=== PATIENT | female | born 1965 | race Caucasian/White ===

== ENCOUNTER 2019-05-17 15:01 | Observation (INO) | payer BC ==
[2019-05-17] MEDS ORDERED: Aspirin 81 MG Tab.Chew PO ONE (15:08)
[2019-05-17] MEDS ORDERED: Sodium Chloride 0.9% 2.5 ML Syringe FLUSH PRN (15:08)
[2019-05-17] MEDS ORDERED: Sodium Chloride 0.9% 10 ML Syringe FLUSH PRN (15:08)
--- NOTE | 2019-05-17 15:20 | EDM.PDOC ---
ED HPI GENERAL MEDICAL PROBLEM - General Chief Complaint: Chest Pain Stated Complaint: CHEST DISCOMFORT Time Seen by Provider: 05/17/19 15:09 Source of Information: Reports: Patient History Limitations: Reports: No Limitations - History of Present Illness INITIAL COMMENTS - FREE TEXT/NARRATIVE: HISTORY AND PHYSICAL: History of present illness: Patient is a 53-year-old female who presents to the emergency room with complaints of generalized chest pain since 10 AM this morning. She states earlier this year she had a stent placed due to some coronary artery disease while she was in [place]. She states that she has not had any problems since her stent placement. This morning she had generalized chest pain that she describes as a tight, nagging feeling which she "was hoping would go away". Nothing makes the pain better or worse. Patient denies any fever, chills, headache, change in vision, syncope or near syncope. Denies any back pain, shortness of breath or cough. Denies any GI or symptoms. Patient has been eating and drinking appropriately. Review of systems: As per history of present illness and below otherwise all systems reviewed and negative. Past medical history: As per history of present illness and as reviewed below otherwise noncontributory. Surgical history: As per history of present illness and as reviewed below otherwise noncontributory. Social history: See social history for further information Family history: As per history of present illness and as reviewed below otherwise noncontributory. Physical exam: General: Well-developed and well-nourished 53-year-old female. Alert and oriented. Nontoxic-appearing and in no acute distress. HEENT: Atraumatic, normocephalic, pupils equal and reactive bilaterally, negative for conjunctival pallor or scleral icterus, mucous membranes moist, neck supple, nontender, trachea midline. No drooling or trismus noted. No meningeal signs. No hot potato voice noted. Lungs: Clear to auscultation, breath sounds equal bilaterally, mild tenderness to palpation of the left anterior chest. Heart: S1S2, regular rate and rhythm without overt murmur Abdomen: Soft, nondistended, nontender. Negative for masses or hepatosplenomegaly. Negative for costovertebral tenderness. Pelvis: Stable nontender. Skin: Intact, warm, dry. No lesions or rashes noted. Extremities: Atraumatic, moves all extremities per self without difficulty or deficits, negative for cords or calf pain. Neurovascular unremarkable. Neuro: Awake, alert, oriented. Cranial nerves II through XII unremarkable. Cerebellum unremarkable. Motor and sensory unremarkable throughout. Exam nonfocal. Notes: EKG shows normal sinus rhythm with a rate of 72. Currently rates pain 5/10 - will give Nitro subling x 3 as able. Patient pain free after 2 nitro. VSS. Labs unremarkable. Offered admission for further observation. Patient is agreeable. Dr Sweeney was consulted and agreeable. Diagnostics: CBC, CMP, Troponin, EKG, CXR Therapeutics: Saline Lock, ASA, Nitro Impression: Chest pain r/o HI Plan: Observation admission to Med/Surg with telemetry Definitive disposition and diagnosis as appropriate pending reevaluation and review of above. chest pain Pain Score (Numeric/FACES): 5 - Related Data Allergies Allergy/AdvReac Type Severity Reaction Status Date / Time No Known Allergies Allergy Verified 05/17/19 15:09 Home Meds: Home Meds Aspirin [Adult Low Dose Aspirin EC] 81 mg PO DAILY 05/17/19 [History] Calcium Carbonate/Vitamin D3 [Calcium 600 + Vit D 200] 1 tab PO BID 05/17/19 [ History] Cholecalciferol (Vitamin D3) [D3-2000] 25 mcg PO DAILY 05/17/19 [History] Clopidogrel Bisulfate [Plavix] 75 mg PO DAILY 05/17/19 [History] Metoprolol Tartrate [Lopressor] 25 mg PO BID 05/17/19 [History] Multivit-Min/Folic Acid/Vit K1 [Multi For Her 50 Plus Softgel] 1 tab PO DAILY [History] [place]-3/DHA/Epa/Fish Oil [Fish Oil 500 MG Softgel] 1 tab PO DAILY 05/17/19 [ History] amLODIPine Besylate [Amlodipine Besylate] 10 mg PO DAILY 05/17/19 [History] atorvaSTATin [Lipitor] 40 mg PO BEDTIME 05/17/19 [History] ED ROS GENERAL - Review of Systems Review Of Systems: Comprehensive ROS is negative, except as noted in HPI. ED EXAM, GENERAL - Physical Exam Exam: See Below (See dictation) Course - Vital Signs Last Recorded V/S: Last Vital Signs Temp 96.8 F 05/17/19 15:07 Pulse 84 05/17/19 15:35 Resp 18 05/17/19 15:35 BP 130/86 05/17/19 15:35 Pulse Ox 94 L 05/17/19 15:35 - Orders/Labs/Meds Orders: Active Orders 24 hr Category Date Time Status Admission Status [Patient Status] [ADT] Stat ADT 05/17/19 16:03 Active EKG Documentation Completion [RC] STAT Care 05/17/19 15:08 Active GLYCOSYLATED HEMOGLOBIN,HGBA1C [CHEM] Stat Lab 05/17/19 16:19 Ordered Nitroglycerin [Nitrostat] Med 05/17/19 15:08 Active 0.4 mg SL Q5M PRN Sodium Chloride 0.9% [Saline Flush] Med 05/17/19 15:08 Active 10 ml FLUSH ASDIRECTED PRN Sodium Chloride 0.9% [Saline Flush] Med 05/17/19 15:08 Active 2.5 ml FLUSH ASDIRECTED PRN Saline Lock Insert [OM.PC] Stat Oth 05/17/19 15:08 Ordered Medication Orders Nitroglycerin (Nitrostat) 0.4 mg SL Q5M PRN PRN Reason: Chest Pain Last Admin: 05/17/19 15:30 Dose: 0.4 mg Admin: 05/17/19 15:24 Dose: 0.4 mg Sodium Chloride (Saline Flush) 10 ml FLUSH ASDIRECTED PRN PRN Reason: Keep Vein Open Last Admin: 05/17/19 15:25 Dose: 10 ml Sodium Chloride (Saline Flush) 2.5 ml FLUSH ASDIRECTED PRN PRN Reason: Keep Vein Open Last Admin: 05/17/19 15:26 Dose: 2.5 ml Labs: Laboratory Tests 05/17/19 05/17/19 Range/Units 15:20 15:20 WBC 6.82 (4.0-11.0) K/uL RBC 4.40 (4.30-5.90) M/uL Hgb 13.9 (12.0-16.0) g/dL Hct 39.3 (36.0-46.0) % MCV 89.3 (80.0-98.0) fL MCH 31.6 (27.0-32.0) pg MCHC 35.4 (31.0-37.0) g/dL RDW Std Deviation 41.9 (28.0-62.0) fl RDW Coeff of Jennifer 13 (11.0-15.0) % Plt Count 256 (150-400) K/uL MPV 9.60 (7.40-12.00) fL Neut % (Auto) 57.6 (48.0-80.0) % Lymph % (Auto) 33.6 (16.0-40.0) % [place] % (Auto) 6.0 (0.0-15.0) % Eos % (Auto) 2.2 (0.0-7.0) % Baso % (Auto) 0.6 (0.0-1.5) % Neut # (Auto) 3.9 (1.4-5.7) K/uL Lymph # (Auto) 2.3 (0.6-2.4) K/uL [place] # (Auto) 0.4 (0.0-0.8) K/uL Eos # (Auto) 0.2 (0.0-0.7) K/uL Baso # (Auto) 0.0 (0.0-0.1) K/uL Nucleated RBC % 0.0 /100WBC Nucleated RBCs # 0 K/uL Sodium 141 (136-145) mmol/L Potassium 3.7 (3.5-5.1) mmol/L Chloride 104 (98-107) mmol/L Carbon Dioxide 27.6 (21.0-32.0) mmol/L BUN 15 (7.0-18.0) mg/dL Creatinine 0.9 (0.6-1.0) mg/dL Est Cr Clr Drug Dosing 70.30 mL/min Estimated GFR (MDRD) > 60.0 ml/min Glucose 116 H (74-106) mg/dL Calcium 9.1 (8.5-10.1) mg/dL Total Bilirubin 0.3 (0.2-1.0) mg/dL AST 21 (15-37) IU/L ALT 46 (14-63) IU/L Alkaline Phosphatase 114 (46-116) U/L Troponin I < 0.050 (0.000-0.056) ng/mL Total Protein 7.7 (6.4-8.2) g/dL Albumin 4.2 (3.4-5.0) g/dL Globulin 3.5 (2.6-4.0) g/dL Albumin/Globulin Ratio 1.2 (0.9-1.6) Meds: Medications Generic Name Dose Route Start Last Admin Trade Name Freq PRN Reason Stop Dose Admin Nitroglycerin 0.4 mg 05/17/19 15:08 05/17/19 15:30 Nitrostat SL 0.4 mg Q5M PRN Administration Chest Pain Sodium Chloride 10 ml 05/17/19 15:08 05/17/19 15:25 Saline Flush FLUSH 10 ml ASDIRECTED PRN Administration Keep Vein Open Sodium Chloride 2.5 ml 05/17/19 15:08 05/17/19 15:26 Saline Flush FLUSH 2.5 ml ASDIRECTED PRN Administration Keep Vein Open Discontinued Medications Generic Name Dose Route Start Last Admin Trade Name Freq PRN Reason Stop Dose Admin Aspirin 324 mg 05/17/19 15:08 05/17/19 15:25 Aspirin PO 05/17/19 15:09 324 mg ONETIME ONE Administration Departure - Departure Time of Disposition: 16:30 Disposition: Refer to Observation Clinical Impression: Chest pain, rule out acute myocardial infarction Sepsis Event Note - Focused Exam Vital Signs: Vital Signs Temp Pulse Resp BP BP Pulse Ox 05/17/19 15:35 84 18 130/86 94 L 05/17/19 15:30 142/92 H 05/17/19 15:24 156/90 H 05/17/19 15:07 96.8 F 72 16 169/91 H 98 Date Exam was Performed: 05/17/19 Time Exam was Performed: 16:29 - My Orders Last 24 Hours: My Active Orders 05/17/19 15:08 EKG Documentation Completion [RC] STAT Nitroglycerin [Nitrostat] 0.4 mg SL Q5M PRN Sodium Chloride 0.9% [Saline Flush] 10 ml FLUSH ASDIRECTED PRN Sodium Chloride 0.9% [Saline Flush] 2.5 ml FLUSH ASDIRECTED PRN Saline Lock Insert [OM.PC] Stat 05/17/19 16:03 Admission Status [Patient Status] [ADT] Stat - Assessment/Plan Last 24 Hours: My Active Orders 05/17/19 15:08 EKG Documentation Completion [RC] STAT Nitroglycerin [Nitrostat] 0.4 mg SL Q5M PRN Sodium Chloride 0.9% [Saline Flush] 10 ml FLUSH ASDIRECTED PRN Sodium Chloride 0.9% [Saline Flush] 2.5 ml FLUSH ASDIRECTED PRN Saline Lock Insert [OM.PC] Stat 05/17/19 16:03 Admission Status [Patient Status] [ADT] Stat
[2019-05-17] MEDS: Nitroglycerin 0.4 MG Tab.SL SL PRN ×2 (15:24→15:30)
--- NOTE | 2019-05-17 15:52 | CR ---
Chest: AP view of the chest was obtained. Comparison: No prior chest imaging. Heart size and mediastinum are normal. Lungs are clear. Bony structures are grossly intact. Impression: 1. Nothing acute is seen on AP chest x-ray. Diagnostic code #1 This report was dictated in [place] Standard Time
[2019-05-17 16:01] LABS: BLOOD UREA NITROGEN,BUN 15 mg/dL (7.0-18.0); CARBON DIOXIDE,CO2 27.6 mmol/L (21.0-32.0); CHLORIDE,CL 104 mmol/L (98-107); GLUCOSE RANDOM 116 mg/dL (74-106); POTASSIUM,K 3.7 mmol/L (3.5-5.1); SODIUM,NA 141 mmol/L (136-145)
--- NOTE | 2019-05-17 16:47 | PCM.HP.2 ---
H&P History of Present Illness - General Date of Service: 05/17/19 Admit Problem/Dx: Admission Diagnosis/Problem Admission Diagnosis/Problem Chest pain, rule out acute myocardial infarction Source of Information: Patient History Limitations: Reports: No Limitations - History of Present Illness Initial Comments - Free Text/Narative: This 53 year old female with pmh of HTN, dyslipidemia, and recent stenting of LAD presented to the ED with complaints of L shoulder sharp shooting pain that was followed by heaviness that concerned her. She reports she had a stent place approximately 8 months ago in [place]. She reports she never had chest pain, had some shortness of breath with activity and was set up with a stress test and failed that within 6 minutes per her report. She was taken back the following day and was noted to have 99% stenosis of the LAD. She has remained on her Plavix and ASA since. She reports the pain today started when she was at rest at her desk. She had 2 cups of coffee prior. Reported this sharp shooting pain to her L upper chest and shoulder, which then settled into a heaviness. She then just didn't feel right and went home. At home she had some soup and continued not to feel well. She was concerned and decided to come to the ED to be evaluated. He reports family history of CAD, father had multiple MIs with 2 open heart surgeries, with first GA at the age of 43 approximately. She reports being compliant with all medications. She denies alcohol, tobacco or recreational drug use. In the ED labwork WNL. Troponin negative. EKG SR with no ST changes or T wave inversions. pain improved with Nitro x 2 to 0. BP slightly elevated on arrival, 160 SBP. She reports she had taken BP the other day and it was 120/80s. She was also given ASA. She will be admitted for chest pain rule out ACS PCP, no one in area currently, Needs to establish care. chest pain Pain Score (Numeric/FACES): 5 - Related Data Allergies/Adverse Reactions: Allergies Allergy/AdvReac Type Severity Reaction Status Date / Time shellfish derived Allergy Facial Verified 05/17/19 17:21 Swelling Home Medications: Home Meds Aspirin [Adult Low Dose Aspirin EC] 81 mg PO DAILY 05/17/19 [History] Calcium Carbonate/Vitamin D3 [Calcium 600 + Vit D 200] 1 tab PO BID 05/17/19 [ History] Cholecalciferol (Vitamin D3) [D3-2000] 25 mcg PO DAILY 05/17/19 [History] Clopidogrel Bisulfate [Plavix] 75 mg PO DAILY 05/17/19 [History] Metoprolol Tartrate [Lopressor] 25 mg PO BID 05/17/19 [History] Multivit-Min/Folic Acid/Vit K1 [Multi For Her 50 Plus Softgel] 1 tab PO DAILY [History] [place]-3/DHA/Epa/Fish Oil [Fish Oil 500 MG Softgel] 1 tab PO DAILY 05/17/19 [ History] amLODIPine Besylate [Amlodipine Besylate] 10 mg PO DAILY 05/17/19 [History] atorvaSTATin [Lipitor] 40 mg PO BEDTIME 05/17/19 [History] Past Medical History - Past Health History Medical/Surgical History: Denies Medical/Surgical History Cardiovascular History: Reports: CAD, High Cholesterol, Hypertension, Stents. 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 Denies: Diabetes, Type II, Hypothyroidism, Obesity/BMI 30+ - Past Surgical History HEENT Surgical History: Reports: Tonsillectomy Cardiovascular Surgical History: Reports: Coronary Artery Stent GI Surgical History: Reports: Other (See Below) Other GI Surgeries/Procedures: Laparoscopy Female Surgical History: Reports: Hysterectomy, Salpingo-Oophorectomy Social & Family History - Family History Family Medical History: Noncontributory - Tobacco Use Smoking Status *Q: Never Smoker - Caffeine Use Caffeine Use: Reports: Coffee - Alcohol Use Alcohol Use History: No - Recreational Drug Use Recreational Drug Use: No H&P Review of Systems - Review of Systems: Review Of Systems: See Below General: Reports: Malaise HEENT: Reports: No Symptoms, Visual Changes. Denies: Ear Pain, Sinus Congestion Pulmonary: Reports: No Symptoms. Denies: Shortness of Breath Cardiovascular: Reports: Chest Pain (now resolved.), Blood Pressure Problem. Denies: Palpitations, Orthopnea, Syncope Gastrointestinal: Reports: No Symptoms. Denies: Abdominal Pain Genitourinary: Reports: No Symptoms Musculoskeletal: Reports: No Symptoms Skin: Reports: No Symptoms Psychiatric: Reports: No Symptoms Hematologic/Lymphatic: Reports: No Symptoms Immunologic: Reports: No Symptoms Exam - Exam Exam: See Below - Vital Signs Vital Signs: Last Vital Signs Temp 96.8 F 05/17/19 15:07 Pulse 84 05/17/19 15:35 Resp 18 05/17/19 15:35 BP 130/86 05/17/19 15:35 Pulse Ox 94 L 05/17/19 15:35 Weight: 86.183 kg - Exam General: Alert, Oriented, Cooperative Lungs: Clear to Auscultation, Normal Respiratory Effort Cardiovascular: Regular Rate, Regular Rhythm, Normal S1, Normal S2. No: Systolic Murmur GI/Abdominal Exam: Normal Bowel Sounds, Soft, Non-Tender Extremities: Normal Inspection, Normal Range of Motion, Non-Tender, No Pedal Edema Neuro Extensive - Mental Status: Alert, Oriented x3 Neuro Extensive - Motor, Sensory, Reflexes: CN II-XII Intact Psychiatric: Alert, Normal Affect, Normal Mood - Patient Data Lab Results Last 24 hrs: Laboratory Results - last 24 hr 05/17/19 05/17/19 Range/Units 15:20 15:20 WBC 6.82 (4.0-11.0) K/uL RBC 4.40 (4.30-5.90) M/uL Hgb 13.9 (12.0-16.0) g/dL Hct 39.3 (36.0-46.0) % MCV 89.3 (80.0-98.0) fL MCH 31.6 (27.0-32.0) pg MCHC 35.4 (31.0-37.0) g/dL RDW Std Deviation 41.9 (28.0-62.0) fl RDW Coeff of Jennifer 13 (11.0-15.0) % Plt Count 256 (150-400) K/uL MPV 9.60 (7.40-12.00) fL Neut % (Auto) 57.6 (48.0-80.0) % Lymph % (Auto) 33.6 (16.0-40.0) % [place] % (Auto) 6.0 (0.0-15.0) % Eos % (Auto) 2.2 (0.0-7.0) % Baso % (Auto) 0.6 (0.0-1.5) % Neut # (Auto) 3.9 (1.4-5.7) K/uL Lymph # (Auto) 2.3 (0.6-2.4) K/uL [place] # (Auto) 0.4 (0.0-0.8) K/uL Eos # (Auto) 0.2 (0.0-0.7) K/uL Baso # (Auto) 0.0 (0.0-0.1) K/uL Nucleated RBC % 0.0 /100WBC Nucleated RBCs # 0 K/uL Sodium 141 (136-145) mmol/L Potassium 3.7 (3.5-5.1) mmol/L Chloride 104 (98-107) mmol/L Carbon Dioxide 27.6 (21.0-32.0) mmol/L BUN 15 (7.0-18.0) mg/dL Creatinine 0.9 (0.6-1.0) mg/dL Est Cr Clr Drug Dosing 70.30 mL/min Estimated GFR (MDRD) > 60.0 ml/min Glucose 116 H (74-106) mg/dL Calcium 9.1 (8.5-10.1) mg/dL Total Bilirubin 0.3 (0.2-1.0) mg/dL AST 21 (15-37) IU/L ALT 46 (14-63) IU/L Alkaline Phosphatase 114 (46-116) U/L Troponin I < 0.050 (0.000-0.056) ng/mL Total Protein 7.7 (6.4-8.2) g/dL Albumin 4.2 (3.4-5.0) g/dL Globulin 3.5 (2.6-4.0) g/dL Albumin/Globulin Ratio 1.2 (0.9-1.6) Result Diagrams: 05/17/19 15:20 05/17/19 15:20 EKG INTERPRETATION EKG Date: 05/17/19 Rhythm: NSR P-Wave: Present QRS: Normal ST-T: Normal QT: Normal Sepsis Event Note - Evaluation Sepsis Screening Result: No Definite Risk - Focused Exam Vital Signs: Vital Signs Temp Pulse Resp BP BP Pulse Ox 05/17/19 15:35 84 18 130/86 94 L 05/17/19 15:30 142/92 H 05/17/19 15:24 156/90 H 05/17/19 15:07 96.8 F 72 16 169/91 H 98 Date Exam was Performed: 05/17/19 Time Exam was Performed: 19:57 - Problem List (1) Chest pain, rule out acute myocardial infarction SNOMED Code(s): 65603396 ICD Code: R07.9 - CHEST PAIN, UNSPECIFIED Status: Acute Current Visit: No (2) HTN (hypertension) SNOMED Code(s): 59103805 ICD Code: I10 - ESSENTIAL (PRIMARY) HYPERTENSION Status: Chronic Current Visit: Yes (3) Dyslipidemia SNOMED Code(s): 157735830 ICD Code: E78.5 - HYPERLIPIDEMIA, UNSPECIFIED Status: Chronic Current Visit: Yes (4) CAD (coronary artery disease) SNOMED Code(s): 33525383 ICD Code: I25.10 - ATHSCL HEART DISEASE OF [place] CORONARY ARTERY W/O ANG PCTRS Status: Chronic Current Visit: Yes Qualifiers: Coronary Disease-Associated Artery/Lesion type: [place] artery [place] vs. transplanted heart: [place] heart (5) History of placement of stent in LAD coronary artery SNOMED Code(s): 095714364 ICD Code: Z95.5 - PRESENCE OF CORONARY ANGIOPLASTY IMPLANT AND GRAFT Status : Chronic Current Visit: Yes Problem List Initiated/Reviewed/Updated: Yes Orders Last 24hrs: Active Orders 24 hr Category Date Time Status Admission Status [Patient Status] [ADT] Stat ADT 05/17/19 16:03 Active EKG Documentation Completion [RC] STAT Care 05/17/19 15:08 Active GLYCOSYLATED HEMOGLOBIN,HGBA1C [CHEM] Stat Lab 05/17/19 15:20 Received Nitroglycerin [Nitrostat] Med 05/17/19 15:08 Active 0.4 mg SL Q5M PRN Sodium Chloride 0.9% [Saline Flush] Med 05/17/19 15:08 Active 10 ml FLUSH ASDIRECTED PRN Sodium Chloride 0.9% [Saline Flush] Med 05/17/19 15:08 Active 2.5 ml FLUSH ASDIRECTED PRN Saline Lock Insert [OM.PC] Stat Oth 05/17/19 15:08 Ordered Medication Orders Nitroglycerin (Nitrostat) 0.4 mg SL Q5M PRN PRN Reason: Chest Pain Last Admin: 05/17/19 15:30 Dose: 0.4 mg Admin: 05/17/19 15:24 Dose: 0.4 mg Sodium Chloride (Saline Flush) 10 ml FLUSH ASDIRECTED PRN PRN Reason: Keep Vein Open Last Admin: 05/17/19 15:25 Dose: 10 ml Sodium Chloride (Saline Flush) 2.5 ml FLUSH ASDIRECTED PRN PRN Reason: Keep Vein Open Last Admin: 05/17/19 15:26 Dose: 2.5 ml Assessment/Plan Comment:: This 53 year old female admitted with chest pain, rule out ACS 1. Chest pain: Trend troponins every 3 hours, monitor on telemetry Will trial GI cocktail and Protonix. Monitor for return of chest pain. monitor lipid panel and A1c. Arrange outpatient stress test and appointment with [facility] now that she is living here. 2. CAD: Continue ASA, Plavix and statin 3. HTN: Continue Metoprolol and Amlodipine. VTE Prophylaxis: SCDs and ambulation - Mortality Measure Prognosis:: Good
[2019-05-17] MEDS ORDERED: Ondansetron 4 MG/2 ML SDV IVPUSH PRN (16:51)
[2019-05-17] MEDS ORDERED: Acetaminophen 325 MG Tab PO PRN (16:51)
[2019-05-17] MEDS ORDERED: Pantoprazole 40 MG in Sodium Chloride 0.9% 10 ML IV ONE (16:51)
[2019-05-17] MEDS ORDERED: Alum Hydrox/Mag Hydrox/Simeth 15 ML, Lidocaine 2% 5 ML PO ONE ×2 (16:51)
[2019-05-17] MEDS ORDERED: Morphine 2 MG/ML Syringe IVPUSH PRN (16:55)
[2019-05-17] MEDS ORDERED: Nitroglycerin 0.4 MG Tab.SL SL PRN (16:55)
[2019-05-17 17:02] LABS: HEMOGLOBIN A1C 5.2 % (4.5-6.2)
[2019-05-17] MEDS: Calcium Carbonate/Vitamin D3 1500 MG-400 Units Tab PO SCH (20:08)
[2019-05-17] MEDS: Metoprolol Tartrate 25 MG Tab PO SCH (20:09)
[2019-05-17] MEDS ORDERED: atorvaSTATin 40 MG Tab PO SCH (21:00)
[2019-05-18] MEDS ORDERED: VIT K1 PO SCH (09:00)
[2019-05-18] MEDS ORDERED: EPA PO SCH (09:00)
[2019-05-18] MEDS ORDERED: MULTIVIT MIN PO SCH (09:00)
[2019-05-18] MEDS ORDERED: FOLIC ACID PO SCH (09:00)
[2019-05-18] MEDS ORDERED: OMEGA PO SCH (09:00)
[2019-05-18] MEDS ORDERED: Clopidogrel 75 MG Tab PO SCH (09:00)
[2019-05-18] MEDS ORDERED: Cholecalciferol (Vitamin D3) 25 MCG Tab PO SCH (09:00)
[2019-05-18] MEDS ORDERED: FISH OIL PO SCH (09:00)
[2019-05-18] MEDS ORDERED: amLODIPine 5 MG Tab PO SCH (09:00)
[2019-05-18] MEDS ORDERED: Aspirin 81 MG Tab.EC PO SCH (09:00)
[2019-05-18] MEDS ORDERED: DHA PO SCH (09:00)
[2019-05-18] MEDS: Calcium Carbonate/Vitamin D3 1500 MG-400 Units Tab PO SCH (09:03)
[2019-05-18] MEDS: Metoprolol Tartrate 25 MG Tab PO SCH (09:03)
--- NOTE | 2019-05-18 10:03 | PCM.DCSUM1 ---
Discharge Summary - Hospital Course Brief History: This 53 year old female with pmh of HTN, dyslipidemia, and recent stenting of LAD presented to the ED with complaints of L shoulder sharp shooting pain that was followed by heaviness that concerned her. She reports she had a stent place approximately 8 months ago in [place]. She reports she never had chest pain, had some shortness of breath with activity and was set up with a stress test and failed that within 6 minutes per her report. She was taken back the following day and was noted to have 99% stenosis of the LAD. She has remained on her Plavix and ASA since. She reports the pain today started when she was at rest at her desk. She had 2 cups of coffee prior. Reported this sharp shooting pain to her L upper chest and shoulder, which then settled into a heaviness. She then just didn't feel right and went home. At home she had some soup and continued not to feel well. She was concerned and decided to come to the ED to be evaluated. He reports family history of CAD, father had multiple MIs with 2 open heart surgeries, with first AR at the age of 43 approximately. She reports being compliant with all medications. She denies alcohol, tobacco or recreational drug use. In the ED labwork WNL. Troponin negative. EKG SR with no ST changes or T wave inversions. pain improved with Nitro x 2 to 0. BP slightly elevated on arrival, 160 SBP. She reports she had taken BP the other day and it was 120/80s. She was also given ASA. She will be admitted for chest pain rule out ACS Diagnosis: Stroke: No - Discharge Data Discharge Date: 05/18/19 Discharge Disposition: Home, Self-Care 01 Condition: Good - Referral to Home Health Primary Care Physician: PCP None - Discharge Diagnosis/Problem(s) (1) Chest pain, rule out acute myocardial infarction SNOMED Code(s): 26074220 ICD Code: R07.9 - CHEST PAIN, UNSPECIFIED Status: Acute (2) HTN (hypertension) SNOMED Code(s): 55844421 ICD Code: I10 - ESSENTIAL (PRIMARY) HYPERTENSION Status: Chronic (3) Dyslipidemia SNOMED Code(s): 432481489 ICD Code: E78.5 - HYPERLIPIDEMIA, UNSPECIFIED Status: Chronic (4) CAD (coronary artery disease) SNOMED Code(s): 55953955 ICD Code: I25.10 - ATHSCL HEART DISEASE OF [place] CORONARY ARTERY W/O ANG PCTRS Status: Chronic Qualifiers: Coronary Disease-Associated Artery/Lesion type: [place] artery [place] vs. transplanted heart: [place] heart (5) History of placement of stent in LAD coronary artery SNOMED Code(s): 074498365 ICD Code: Z95.5 - PRESENCE OF CORONARY ANGIOPLASTY IMPLANT AND GRAFT Status : Chronic - Patient Instructions Diet: Heart Healthy Diet Activity: As Tolerated, No Strenuous Activities Showering/Bathing: May Shower Notify Provider of: Fever, Increased Pain, Swelling and Redness, Drainage, Nausea and/or Vomiting - Discharge Plan *PRESCRIPTION DRUG MONITORING PROGRAM REVIEWED*: Not Applicable *COPY OF PRESCRIPTION DRUG MONITORING REPORT IN PATIENT ASHLEIGH: Not Applicable Prescriptions/Med Rec: Pantoprazole Sodium [Protonix] 20 mg PO DAILY #30 tablet. Home Medications: Home Meds Aspirin [Adult Low Dose Aspirin EC] 81 mg PO DAILY 05/17/19 [History] Calcium Carbonate/Vitamin D3 [Calcium 600 + Vit D 200] 1 tab PO BID 05/17/19 [ History] Cholecalciferol (Vitamin D3) [D3-2000] 25 mcg PO DAILY 05/17/19 [History] Clopidogrel Bisulfate [Plavix] 75 mg PO DAILY 05/17/19 [History] Metoprolol Tartrate [Lopressor] 25 mg PO BID 05/17/19 [History] Multivit-Min/Folic Acid/Vit K1 [Multi For Her 50 Plus Softgel] 1 tab PO DAILY [History] [place]-3/DHA/Epa/Fish Oil [Fish Oil 500 MG Softgel] 1 tab PO DAILY 05/17/19 [ History] amLODIPine Besylate [Amlodipine Besylate] 10 mg PO DAILY 05/17/19 [History] atorvaSTATin [Lipitor] 40 mg PO BEDTIME 05/17/19 [History] Pantoprazole Sodium [Protonix] 20 mg PO DAILY #30 tablet. 05/18/19 [Rx] Oxygen Therapy Mode: Room Air Patient Handouts: Nonspecific Chest Pain, [id number], Pantoprazole tablets Referrals: [facility] [Outside] Sandhya Hercules MD [Physician] - 06/16/19 10:30 am Carolyn Jarrett NP [Nurse Practitioner] - 05/26/19 9:45 am - Discharge Summary/Plan Comment DC Time >30 min.: No Discharge Summary/Plan Comment: Admitting Diagnoses: Chest pain Discharge Diagnoses: Chest pain-resolved Other PMH: Hx CAD with recent stenting to LAD HTN Bibiana was admitted and monitored overnight for ACS rule out due to chest pressure she experienced at rest at work. Nitro x 2 helped with pain. She was also given GI cocktail and Protonix. EKG SR with no ST elevation or T wave inversion. She had no re-occurence of chest pain. alarm security or surveillance monitor unchanged overnight. Troponins negative. She will be discharged today with close follow up with PCP, Cardiology and outpatient stress test. She is to continue all current medications, I will add Protonix x2 weeks in case GERD caused pain. But overall, ACS ruled out further evaluation needed due to significant CAD history. She is to return to ED or clinic if concerns should arise or chest pain returns. - Patient Data Vitals - Most Recent: Last Vital Signs Temp 96.9 F 05/18/19 07:38 Pulse 65 05/18/19 07:38 Resp 16 05/18/19 07:38 BP 119/71 05/18/19 07:38 Pulse Ox 96 05/18/19 07:38 Weight - Most Recent: 86.183 kg I&O - Last 24 hours: Intake & Output 05/17/19 05/18/19 05/18/19 22:59 06:59 14:59 Intake Total 950 Output Total 700 Balance 250 Lab Results - Last 24 hrs: Laboratory Results - last 24 hr 05/17/19 05/17/19 05/17/19 Range/Units 15:20 15:20 15:20 WBC 6.82 (4.0-11.0) K/uL RBC 4.40 (4.30-5.90) M/uL Hgb 13.9 (12.0-16.0) g/dL Hct 39.3 (36.0-46.0) % MCV 89.3 (80.0-98.0) fL MCH 31.6 (27.0-32.0) pg MCHC 35.4 (31.0-37.0) g/dL RDW Std Deviation 41.9 (28.0-62.0) fl RDW Coeff of Jennifer 13 (11.0-15.0) % Plt Count 256 (150-400) K/uL MPV 9.60 (7.40-12.00) fL Neut % (Auto) 57.6 (48.0-80.0) % Lymph % (Auto) 33.6 (16.0-40.0) % [place] % (Auto) 6.0 (0.0-15.0) % Eos % (Auto) 2.2 (0.0-7.0) % Baso % (Auto) 0.6 (0.0-1.5) % Neut # (Auto) 3.9 (1.4-5.7) K/uL Lymph # (Auto) 2.3 (0.6-2.4) K/uL [place] # (Auto) 0.4 (0.0-0.8) K/uL Eos # (Auto) 0.2 (0.0-0.7) K/uL Baso # (Auto) 0.0 (0.0-0.1) K/uL Nucleated RBC % 0.0 /100WBC Nucleated RBCs # 0 K/uL Sodium 141 (136-145) mmol/L Potassium 3.7 (3.5-5.1) mmol/L Chloride 104 (98-107) mmol/L Carbon Dioxide 27.6 (21.0-32.0) mmol/L BUN 15 (7.0-18.0) mg/dL Creatinine 0.9 (0.6-1.0) mg/dL Est Cr Clr Drug Dosing 70.30 mL/min Estimated GFR (MDRD) > 60.0 ml/min Glucose 116 H (74-106) mg/dL Hemoglobin A1c 5.2 (4.5-6.2) % Calcium 9.1 (8.5-10.1) mg/dL Total Bilirubin 0.3 (0.2-1.0) mg/dL AST 21 (15-37) IU/L ALT 46 (14-63) IU/L Alkaline Phosphatase 114 (46-116) U/L Troponin I < 0.050 (0.000-0.056) ng/mL Total Protein 7.7 (6.4-8.2) g/dL Albumin 4.2 (3.4-5.0) g/dL Globulin 3.5 (2.6-4.0) g/dL Albumin/Globulin Ratio 1.2 (0.9-1.6) Triglycerides (0-200) mg/dL Cholesterol (50-200) mg/dL LDL Cholesterol, Calc (60-180) mg/dL VLDL Cholesterol (5-55) mg/dL HDL Cholesterol (40-60) mg/dL Cholesterol/HDL Ratio (3.3-6.0) TSH 3rd Generation (0.36-3.74) uIU/mL 05/17/19 05/17/19 05/18/19 Range/Units 18:06 21:05 05:18 WBC (4.0-11.0) K/uL RBC (4.30-5.90) M/uL Hgb (12.0-16.0) g/dL Hct (36.0-46.0) % MCV (80.0-98.0) fL MCH (27.0-32.0) pg MCHC (31.0-37.0) g/dL RDW Std Deviation (28.0-62.0) fl RDW Coeff of Jennifer (11.0-15.0) % Plt Count (150-400) K/uL MPV (7.40-12.00) fL Neut % (Auto) (48.0-80.0) % Lymph % (Auto) (16.0-40.0) % [place] % (Auto) (0.0-15.0) % Eos % (Auto) (0.0-7.0) % Baso % (Auto) (0.0-1.5) % Neut # (Auto) (1.4-5.7) K/uL Lymph # (Auto) (0.6-2.4) K/uL [place] # (Auto) (0.0-0.8) K/uL Eos # (Auto) (0.0-0.7) K/uL Baso # (Auto) (0.0-0.1) K/uL Nucleated RBC % /100WBC Nucleated RBCs # K/uL Sodium (136-145) mmol/L Potassium (3.5-5.1) mmol/L Chloride (98-107) mmol/L Carbon Dioxide (21.0-32.0) mmol/L BUN (7.0-18.0) mg/dL Creatinine (0.6-1.0) mg/dL Est Cr Clr Drug Dosing mL/min Estimated GFR (MDRD) ml/min Glucose (74-106) mg/dL Hemoglobin A1c (4.5-6.2) % Calcium (8.5-10.1) mg/dL Total Bilirubin (0.2-1.0) mg/dL AST (15-37) IU/L ALT (14-63) IU/L Alkaline Phosphatase (46-116) U/L Troponin I < 0.050 < 0.050 (0.000-0.056) ng/mL Total Protein (6.4-8.2) g/dL Albumin (3.4-5.0) g/dL Globulin (2.6-4.0) g/dL Albumin/Globulin Ratio (0.9-1.6) Triglycerides 205 H (0-200) mg/dL Cholesterol 158 (50-200) mg/dL LDL Cholesterol, Calc 79 (60-180) mg/dL VLDL Cholesterol 41 (5-55) mg/dL HDL Cholesterol 38 L (40-60) mg/dL Cholesterol/HDL Ratio 4.2 (3.3-6.0) TSH 3rd Generation 1.12 (0.36-3.74) uIU/mL Med Orders - Current: Current Medications Acetaminophen (Tylenol) 650 mg PO Q4H PRN PRN Reason: Pain (Mild 1-3)/fever Amlodipine Besylate (Norvasc) 10 mg PO DAILY [facility] Last Admin: 05/18/19 09:03 Dose: Not Given Aspirin (Halfprin) 81 mg PO DAILY [facility] Last Admin: 05/18/19 09:03 Dose: Not Given Atorvastatin Calcium (Lipitor) 40 mg PO BEDTIME [facility] Last Admin: 05/17/19 20:09 Dose: 40 mg Calcium Carbonate (Caltrate 600+D 1500 Mg-400 Units) 1 tab PO BID [facility] Last Admin: 05/18/19 09:03 Dose: Not Given Cholecalciferol (Vitamin D3) 25 mcg PO DAILY [facility] Last Admin: 05/18/19 09:04 Dose: Not Given Clopidogrel Bisulfate (Plavix) 75 mg PO DAILY [facility] Last Admin: 05/18/19 09:03 Dose: Not Given Metoprolol Tartrate (Lopressor) 25 mg PO BID [facility] Last Admin: 05/18/19 09:03 Dose: Not Given Morphine Sulfate (Morphine) 2 mg IVPUSH Q4H PRN PRN Reason: Chest Pain Nitroglycerin (Nitrostat) 0.4 mg SL Q5M PRN PRN Reason: Chest Pain Ondansetron HCl (Zofran) 4 mg IVPUSH Q4H PRN PRN Reason: Nausea Multivit-Min/Folic Acid/Vit K1 [Multi For Her 50 Plus Sof 1 each PO DAILY [facility] Last Admin: 05/18/19 09:04 Dose: Not Given [place]-3/Dha/Epa/Fish Oil [Fish Oil 500 Mg Softgel] 1 Tab 1 each PO DAILY [facility] Last Admin: 05/18/19 09:04 Dose: Not Given Sodium Chloride (Saline Flush) 10 ml FLUSH ASDIRECTED PRN PRN Reason: Keep Vein Open Last Admin: 05/17/19 15:25 Dose: 10 ml Sodium Chloride (Saline Flush) 2.5 ml FLUSH ASDIRECTED PRN PRN Reason: Keep Vein Open Last Admin: 05/17/19 15:26 Dose: 2.5 ml Discontinued Medications Aspirin (Aspirin) 324 mg PO ONETIME ONE Stop: 05/17/19 15:09 Last Admin: 05/17/19 15:25 Dose: 324 mg Al Hydroxide/Mg Hydroxide 15 (ml/ Lidocaine HCl 5 ml) 0 ml PO ONETIME ONE Stop: 05/17/19 16:52 Last Admin: 05/17/19 18:55 Dose: 1 each Pantoprazole Sodium 40 mg/ (Sodium Chloride) 10 mls @ 300 mls/hr IV ONETIME ONE Stop: 05/17/19 16:52 Last Admin: 05/17/19 17:36 Dose: 300 mls/hr Nitroglycerin (Nitrostat) 0.4 mg SL Q5M PRN PRN Reason: Chest Pain Last Admin: 05/17/19 15:30 Dose: 0.4 mg
== END 2019-05-18 11:20 | disposition home or self-care (01) ==
LOC: MW.ED 15:01 → MW.MS 16:25
PROVIDERS: ADMIT Student in an Organized Health Care Education/Training Program; ATTEND Student in an Organized Health Care Education/Training Program
DX: R07.89 Other chest pain (principal); I10 Essential (primary) hypertension; I25.10 Atherosclerotic heart disease of native coronary artery without angina pectoris; Z91.013 Allergy to seafood; Z95.5 Presence of coronary angioplasty implant and graft; Z82.49 Family history of ischemic heart disease and other diseases of the circulatory system; E78.00 Pure hypercholesterolemia, unspecified; Z79.02 Long term (current) use of antithrombotics/antiplatelets; Z79.82 Long term (current) use of aspirin; Z79.899 Other long term (current) drug therapy
CPT/HCPCS: 36415; 71045; 71045-26; 80053; 80061; 83036; 84443; 84484; 85025; 93005; 96374; 99284; 99285-25; A9270-GY; C9113; G0378; J7050

== ENCOUNTER 2021-12-07 05:00 | Observation (INO) | payer BC ==
[2021-12-07] MEDS ORDERED: Sodium Chloride 0.9% 10 ML Syringe FLUSH PRN (05:19)
[2021-12-07] MEDS ORDERED: Sodium Chloride 0.9% 2.5 ML Syringe FLUSH PRN (05:19)
[2021-12-07 05:39] LABS: CARBON DIOXIDE,CO2 27.3 mmol/L (21.0-32.0); POTASSIUM,K 4.2 mmol/L (3.5-5.1)
[2021-12-07] MEDS ORDERED: Sodium Chloride 0.9% 1,000 ML IV ONE (05:44)
[2021-12-07] MEDS: Nitroglycerin 0.4 MG Tab.SL SL PRN ×3 (05:57→06:15)
[2021-12-07] MEDS ORDERED: Aspirin 81 MG Tab.EC PO ONE (10:47)
[2021-12-07] MEDS: Metoprolol Tartrate 25 MG Tab PO SCH (20:29)
[2021-12-07] MEDS ORDERED: atorvaSTATin 40 MG Tab PO SCH (21:00)
[2021-12-08] MEDS: Metoprolol Tartrate 25 MG Tab PO SCH (08:27)
[2021-12-08] MEDS ORDERED: Losartan 50 MG Tab PO SCH (09:00)
[2021-12-08] MEDS ORDERED: amLODIPine 5 MG Tab PO SCH (09:00)
[2021-12-08] MEDS ORDERED: Aspirin 81 MG Tab.EC PO SCH (09:00)
== END 2021-12-08 14:45 | disposition home or self-care (01) ==
LOC: MW.ED 05:00 → EDBD 05:00 → MERGE 06:37 → MW.MS 06:37
PROVIDERS: ADMIT Internal Medicine; ATTEND Internal Medicine
DX: R07.2 Precordial pain (principal); I10 Essential (primary) hypertension; I25.10 Atherosclerotic heart disease of native coronary artery without angina pectoris; D86.9 Sarcoidosis, unspecified; E78.00 Pure hypercholesterolemia, unspecified; F17.200 Nicotine dependence, unspecified, uncomplicated; E66.9 Obesity, unspecified; Z90.710 Acquired absence of both cervix and uterus; Z20.822 Contact with and (suspected) exposure to COVID-19; Z79.82 Long term (current) use of aspirin; Z79.899 Other long term (current) drug therapy; Z79.02 Long term (current) use of antithrombotics/antiplatelets; Z98.890 Other specified postprocedural states; Z95.5 Presence of coronary angioplasty implant and graft
CPT/HCPCS: 36415; 71045; 80053; 84484; 85025; 85379; 87635; 93005; A9270; G0378; J3490; J7030; 99285; U0002

== ENCOUNTER 2022-08-15 23:32 | Emergency (ER) | payer OTHER, BC | END 2022-08-16 00:27 | disposition home or self-care (01) | LOC: MW.ED 23:32 | DX: S52.592A Other fractures of lower end of left radius, initial encounter for closed fracture (principal); I10 Essential (primary) hypertension; E78.5 Hyperlipidemia, unspecified; I25.10 Atherosclerotic heart disease of native coronary artery without angina pectoris; Z79.82 Long term (current) use of aspirin; Z79.02 Long term (current) use of antithrombotics/antiplatelets; Z79.899 Other long term (current) drug therapy; Z91.013 Allergy to seafood; W00.0XXA Fall on same level due to ice and snow, initial encounter | CPT/HCPCS: 29125; 73090-26-LT; 73090-LT; 99283 ==

== ENCOUNTER 2024-12-13 06:56 | Day surgery (SDC) | payer BC ==
[~2024-12-13 06:56] MED LIST: Sodium Chloride 0.9% 10 ML Syringe FLUSH PRN; Sodium Chloride 0.9% 2.5 ML Syringe FLUSH PRN
[2024-12-13] MEDS: Lactated Ringers 1,000 ML IV SCH (07:30)
[2024-12-13] MEDS ORDERED: Propofol 200 MG/20 ML SDV ONE ×2 (07:41→08:46)
== END 2024-12-13 09:21 | disposition home or self-care (01) ==
LOC: MW.SDS 06:56
PROVIDERS: ATTEND Surgery
DX: Z12.11 Encounter for screening for malignant neoplasm of colon (principal); D12.4 Benign neoplasm of descending colon; D12.8 Benign neoplasm of rectum; K63.5 Polyp of colon; I25.10 Atherosclerotic heart disease of native coronary artery without angina pectoris; E78.00 Pure hypercholesterolemia, unspecified; I10 Essential (primary) hypertension; E66.9 Obesity, unspecified; Z79.82 Long term (current) use of aspirin; Z68.30 Body mass index [BMI] 30.0-30.9, adult; Z79.899 Other long term (current) drug therapy; Z91.013 Allergy to seafood; Z86.0100 Personal history of colon polyps, unspecified
CPT/HCPCS: 45380; 45385; J2003; J2704; J7120; 00811